=== PATIENT | female | born 1980 | race Caucasian/White ===

== ENCOUNTER 2017-04-05 22:48 | Observation (INO) | payer OTHER ==
[~2017-04-05] VITALS: Ht 162.6 cm; Wt 84.0 kg
[2017-04-05 23:15] LABS: BASOPHIL COUNT 0.1 K/uL (0-0.1); EOSINOPHIL (%) 0.9 % (0-5); EOSINOPHIL COUNT 0.1 K/uL (0-0.3); HEMATOCRIT 40.9 % (36.0-46.0); IMMATURE GRANULOCYTE (%) 0.6 % (0.0-0.7); IMMATURE GRANULOCYTE COUNT 0.1 K/uL; INSTRUMENT ABS NEUTROPHIL CT 10.1 K/uL; LYMPHOCYTE COUNT 4.2 K/uL (1.0-2.8); MCH 33.6 PG (29.0-34.0); MCHC 35.5 G/DL (30.0-36.0); MCV 94.7 FL (83-99); MEAN PLAT.VOLUME 9.7 uM^3 (9.5-12.4); MONOCYTE (%) 3.2 % (3-12); MONOCYTE COUNT 0.5 K/uL (0-0.8); NEUTROPHIL COUNT 10.1 K/uL (1.8-6.4); PLATELET COUNT 350 K/uL (156-360); RBC DIS.WIDTH-CV 13.3 % (11.8-14.6); RBC DIS.WIDTH-SD 46.5 % (39-53); RED BLOOD COUNT 4.32 M/uL (3.80-5.20)
[2017-04-05 23:30] LABS: AMYLASE 54 IU/L (1-118); CHLORIDE 111 mEq/L (99-109); POTASSIUM 3.9 mEq/L (3.7-5.4); SODIUM 145 mEq/L (136-147)
[2017-04-05 23:31] LABS: GLUCOSE 91 mg/dL (70-99)
[2017-04-05 23:33] LABS: ANION GAP 17 MEQ/L (2-14)
[2017-04-05 23:35] LABS: GFR ESTIMATE (CALCULATED) > 59 mL/min/; SERUM ETHYL ALCOHOL 148 mg/dL
[2017-04-05 23:36] LABS: UREA NITROGEN (BUN) 8 mg/dL (9-23)
[2017-04-05 23:38] LABS: LIPASE 45 U/L (1.0-51.0)
[2017-04-05 23:44] LABS: QUANTITATIVE HCG < 4.0 MIU/ML
[2017-04-06] MEDS ORDERED: FISH OIL 1,0001 EA10 PO (00:57)
[2017-04-06] MEDS ORDERED: VITAMIN B122500 MCG PO (00:58)
[2017-04-06 01:06] LABS: ADD MIUA? YES; BILIRUBIN NEGATIVE; BLOOD SMALL; COLOR YELLOW ((YELLOW)); GLUCOSE (STRIP) NEGATIVE; KETONES NEGATIVE; LEUKOCYTES TRACE; NITRITE NEGATIVE; PROTEIN (STRIP) NEGATIVE; SPECIFIC GRAVITY 1.041 (1.000-1.030); UROBILINOGEN 0.2 MG/DL (0.2-1.0)
[2017-04-06 01:14] LABS: BACTERIA NONE SEEN /HPF; EPITHELIAL CELLS RARE /HPF; HYALINE CASTS 0-5 /LPF; MUCUS TRACE /LPF; RED BLOOD CELLS 0-5 /HPF (0-5); UCUL ADDED? YES
[2017-04-06 01:15] LABS: ADD MEDTOX COMMENT Y; AMPHETAMINE NEGATIVE (500 ng/mL); BARBITURATES NEGATIVE (200 ng/mL); BENZODIAZEPINES NEGATIVE (150 ng/mL); COCAINE NEGATIVE (150 ng/mL); INTERNAL CONTROLS VALID? YES; METHADONE NEGATIVE (200 ng/mL); METHAMPHETAMINE NEGATIVE (500 ng/mL); OPIATES (MORPHINE) PRESUMPTIVE POSITIVE (100 ng/mL); OXYCODONE NEGATIVE (100 ng/mL); PHENCYCLIDINE PRESUMPTIVE POSITIVE (25 ng/mL); PROPOXYPHENE NEGATIVE (300 ng/mL); THC CANNABINOIDS PRESUMPTIVE POSITIVE (50 ng/mL); TRICYCLIC ANTIDEPRESSANTS NEGATIVE (300 ng/mL)
[2017-04-06 08:18] LABS: BASOPHIL COUNT 0.1 K/uL (0-0.1); EOSINOPHIL (%) 2.6 % (0-5); EOSINOPHIL COUNT 0.3 K/uL (0-0.3); HEMATOCRIT 33.6 % (36.0-46.0); IMMATURE GRANULOCYTE (%) 0.4 % (0.0-0.7); INSTRUMENT ABS NEUTROPHIL CT 4.7 K/uL; MCH 33.6 PG (29.0-34.0); MCHC 34.2 G/DL (30.0-36.0); MCV 98.2 FL (83-99); MONOCYTE (%) 4.5 % (3-12); MONOCYTE COUNT 0.4 K/uL (0-0.8); NEUTROPHIL (%) 49.8 % (45-76); NEUTROPHIL COUNT 4.7 K/uL (1.8-6.4); RBC DIS.WIDTH-CV 13.6 % (11.8-14.6); RBC DIS.WIDTH-SD 49.5 % (39-53); WHITE BLOOD COUNT 9.5 K/uL (4.1-10.2)
[2017-04-06 08:29] LABS: RED BLOOD COUNT 3.42 M/uL (3.80-5.20)
[2017-04-06 08:30] LABS: CHLORIDE 107 mEq/L (99-109)
[2017-04-06 08:31] LABS: SODIUM 141 mEq/L (136-147)
[2017-04-06 08:34] LABS: ANION GAP 12 MEQ/L (2-14); GLUCOSE 151 mg/dL (70-99)
[2017-04-06 08:35] LABS: POTASSIUM 2.8 mEq/L (3.7-5.4); TOTAL BILIRUBIN 0.7 mg/dL (0.0-1.0)
[2017-04-06 08:36] LABS: ALKALINE PHOSPHATASE 71 IU/L (3-129); GFR ESTIMATE (CALCULATED) > 59 mL/min/
[2017-04-06 08:38] LABS: UREA NITROGEN (BUN) 6 mg/dL (9-23)
[2017-04-06 09:07] LABS: PLAT.SUFFICIENCY ADEQUATE
[2017-04-06 09:15] LABS: PLATELET COUNT 228 K/uL (156-360)
[2017-04-06 13:34] LABS: TREPONEMA ANTIBODY NEGATIVE (NEGATIVE)
[2017-04-06 15:22] VITALS: BP 128/65
[2017-04-06 19:25] VITALS: BP 134/74
[2017-04-07] VITALS (7 sets, daily range): BP systolic 117–149; BP diastolic 69–74
[2017-04-07 11:43] LABS: HEMATOCRIT 32.8 % (36.0-46.0); MCH 32.2 PG (29.0-34.0); MCHC 32.6 G/DL (30.0-36.0); MCV 98.8 FL (83-99); MEAN PLAT.VOLUME 9.2 uM^3 (9.5-12.4); PLATELET COUNT 233 K/uL (156-360); RBC DIS.WIDTH-CV 13.4 % (11.8-14.6); RBC DIS.WIDTH-SD 48.1 % (39-53); RED BLOOD COUNT 3.32 M/uL (3.80-5.20); WHITE BLOOD COUNT 5.6 K/uL (4.1-10.2)
[2017-04-07 12:11] LABS: ALKALINE PHOSPHATASE 65 IU/L (3-129); ANION GAP 4 MEQ/L (2-14); CHLORIDE 108 MEQ/L (99-109); GFR ESTIMATE (CALCULATED) > 59 mL/min/; SAMPLE HEMOLYSIS CHECK 0; SAMPLE ICTERIC CHECK 0; SAMPLE LIPEMIA CHECK 0; SODIUM 139 MEQ/L (136-147); TOTAL BILIRUBIN 0.8 MG/DL (0.0-1.0); UREA NITROGEN (BUN) 3 mg/dL (9-23)
[2017-04-07 12:14] LABS: GLUCOSE 93 mg/dL (70-99); POTASSIUM 4.1 MEQ/L (3.7-5.4)
[2017-04-07 13:20] LABS: CHLAMYDIA TRACHOMATIS NEGATIVE; NEISSERIA GONORRHOEAE NEGATIVE
[2017-04-08 03:22] VITALS: BP 123/65
[2017-04-08 08:11] VITALS: BP 129/63
[2017-04-08 11:44] VITALS: BP 135/71
[2017-04-08] MEDS ORDERED: ENDOCET 5-3251 EACH PO (14:06)
[2017-04-08] MEDS ORDERED: ESCITALOPRAM OX10 MG PO (14:58)
== END 2017-04-08 16:09 | disposition home or self-care (01) ==
LOC: TRA 22:48 → EDOF 04-06 00:36 → 3EAST 04-06 00:36 → ENRESERV 04-06 00:41 → 3EAST 04-06 14:29
PROVIDERS: Emergency Medicine; Surgery
DX: S02.32XA Fracture of orbital floor, left side, initial encounter for closed fracture (principal); S02.2XXA Fracture of nasal bones, initial encounter for closed fracture; S10.93XA Contusion of unspecified part of neck, initial encounter; J93.9 Pneumothorax, unspecified; S27.331A Laceration of lung, unilateral, initial encounter; S41.111A Laceration without foreign body of right upper arm, initial encounter; S41.112A Laceration without foreign body of left upper arm, initial encounter; S61.412A Laceration without foreign body of left hand, initial encounter; S61.411A Laceration without foreign body of right hand, initial encounter; S11.91XA Laceration without foreign body of unspecified part of neck, initial encounter; X99.1XXA Assault by knife, initial encounter; F10.129 Alcohol abuse with intoxication, unspecified; Y90.6 Blood alcohol level of 120-199 mg/100 ml; F11.20 Opioid dependence, uncomplicated; F12.10 Cannabis abuse, uncomplicated; F14.10 Cocaine abuse, uncomplicated; F17.200 Nicotine dependence, unspecified, uncomplicated; F43.0 Acute stress reaction; F43.10 Post-traumatic stress disorder, unspecified; F16.10 Hallucinogen abuse, uncomplicated; Z90.710 Acquired absence of both cervix and uterus; Z87.442 Personal history of urinary calculi
CPT/HCPCS: 70486; 70498; 71020; 71260; 73130; 80048; 80053; 81003; 82150; 83690; 84702; 84999; 85025; 85027; 86780; 86850; 86900; 86901; 87086; 87210; 87491; 87591; 90832; G0378; G0480; J0690; J0696; J1170; J2270; J2405; J3010; J7120